=== PATIENT | female | born 2000 | race Hispanic/Latino ===

== ENCOUNTER → 2019-08-27 | Outpatient (CLI) | payer OTHER, MEDICAID | END | disposition home or self-care (01) | LOC: RAH 12:59 | PROVIDERS: ATTEND Orthopaedic Surgery | DX: M19.071 Primary osteoarthritis, right ankle and foot (principal); M79.89 Other specified soft tissue disorders; Q66.71 Congenital pes cavus, right foot | CPT/HCPCS: 73700 ==

== ENCOUNTER → 2022-01-15 | Outpatient (CLI) | payer OTHER | END | disposition home or self-care (01) | LOC: DTH 13:06 | PROVIDERS: ATTEND Surgery | DX: M19.91 Primary osteoarthritis, unspecified site (principal); E78.00 Pure hypercholesterolemia, unspecified | CPT/HCPCS: 97803 ==

== ENCOUNTER → 2022-02-12 | Outpatient (CLI) | payer OTHER | END | disposition home or self-care (01) | LOC: DTH 11:00 | PROVIDERS: ATTEND Surgery | DX: Z71.3 Dietary counseling and surveillance (principal); E78.00 Pure hypercholesterolemia, unspecified; M19.91 Primary osteoarthritis, unspecified site; E66.09 Other obesity due to excess calories; Z68.42 Body mass index [BMI] 45.0-49.9, adult | CPT/HCPCS: 97803 ==

== ENCOUNTER → 2022-03-12 | Outpatient (CLI) | payer OTHER | END | disposition home or self-care (01) | LOC: DTH 09:55 | PROVIDERS: ATTEND Surgery | DX: Z71.3 Dietary counseling and surveillance (principal); E78.00 Pure hypercholesterolemia, unspecified; M19.91 Primary osteoarthritis, unspecified site; G47.33 Obstructive sleep apnea (adult) (pediatric); E66.09 Other obesity due to excess calories; Z68.42 Body mass index [BMI] 45.0-49.9, adult | CPT/HCPCS: 97803 ==

== ENCOUNTER 2022-04-23 06:52 | Day surgery (SDC) | payer MEDICAID ==
[~2022-04-23] VITALS: Ht 172.7 cm; Wt 144.4 kg
[2022-04-23] MEDS ORDERED: LIDOCAINE PF 100MG/5ML (2%) SYRINGE 5ML ONE (08:28)
[2022-04-23] MEDS ORDERED: PROPOFOL 10 MG/ML 20ML VIAL IV ONE (08:28)
[2022-04-23 08:35] VITALS: BP 129/68
[2022-04-23 08:45] VITALS: BP_SYST 112; BP_SYST 99; BP_DIAS 55; BP_DIAS 62
[2022-04-23 09:00] VITALS: BP 113/65
== END 2022-04-23 09:30 | disposition home or self-care (01) ==
LOC: DAH 06:52 → ENDO 06:52
PROVIDERS: ATTEND Surgery
DX: K21.9 Gastro-esophageal reflux disease without esophagitis (principal); E66.01 Morbid (severe) obesity due to excess calories; Z68.42 Body mass index [BMI] 45.0-49.9, adult; M19.90 Unspecified osteoarthritis, unspecified site; Z96.653 Presence of artificial knee joint, bilateral; Z20.822 Contact with and (suspected) exposure to COVID-19
CPT/HCPCS: 71045; 87426; 84703; 36415; 93005; 43235; J3490 ×2; A4215; A4223; A4222; A4221; A4663; A4606; J2001; J2704

== ENCOUNTER 2024-10-12 18:43 | Emergency (ER) | payer MEDICAID ==
[~2024-10-12] VITALS: Ht 170.2 cm; Wt 107.0 kg
[2024-10-12 18:59] VITALS: TEMP 99
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
[2024-10-12] MEDS: acetaMINOPHEN 500 MG TABLET PO STA (19:46)
[2024-10-12 20:11] LABS: HCG,QUALITATIVE URINE NEGATIVE (NEGATIVE)
[2024-10-12 20:13] LABS: ADD UA MICROSCOPIC YES; APPEARANCE,URINE CLEAR (CLEAR); BILIRUBIN,URINE NEGATIVE (NEGATIVE); COLOR,URINE LIGHT-YELLOW (YELLOW); GLUCOSE, URINE (UA) NEGATIVE (NEGATIVE); KETONES,URINE NEGATIVE (NEGATIVE); LEUKOCYTE ESTERASE ,URINE 250 Leu/uL (NEGATIVE); NITRATE,URINE NEGATIVE (NEGATIVE); PROTEIN,URINE 10 mg/dL (NEGATIVE); UROBILINOGEN,URINE 0.2 mg/dL (0.2-1.0)
[2024-10-12 20:17] LABS: BACTERIA,URINE RARE /HPF (None Seen); MUCUS,URINE RARE LPF (None Seen); SQUAMOUS EPITHELIAL CELL,UR MOD /HPF (0-2)
--- NOTE | 2024-10-12 20:32 | NUR ---
PT TO CT AT THIS TIME.
--- NOTE | 2024-10-12 20:43 | NUR ---
PT BACK FROM CT
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
[2024-10-12 23:10] VITALS: BP 109/64; PULSE 84; RESP 16; O2SAT 100
== END 2024-10-12 23:21 | disposition home or self-care (01) ==
LOC: EDH 18:43
DX: S00.03XA Contusion of scalp, initial encounter (principal); S00.83XA Contusion of other part of head, initial encounter; Z79.899 Other long term (current) drug therapy; Z98.890 Other specified postprocedural states; V49.49XA Driver injured in collision with other motor vehicles in traffic accident, initial encounter; Y93.89 Activity, other specified; Y92.488 Other paved roadways as the place of occurrence of the external cause; Y99.8 Other external cause status
CPT/HCPCS: 36415; 70450; 70486; 72125; 81001; 81025; 87086; 87186; 99284